=== PATIENT | female | born 1970 | race Caucasian/White ===

== ENCOUNTER 2017-01-30 12:50 | Emergency (ER) | payer OTHER ==
[~2017-01-30] VITALS: Ht 172.7 cm; Wt 54.5 kg
[~2017-01-30 12:50] MED LIST: ASPI-973 PO; CALC600T12 PO; CHOL100045 PO; CYAN10008 PO; METO25TA6 PO
[2017-01-30 13:05] VITALS: BP 94/95; PULSE 54; RESP 26; O2SAT 100
--- NOTE | 2017-01-30 13:45 | ED.REPORT ---
HPI-Extremity Problem Lower Date of Service Jan 30, 2017 ED Provider: History of Present Illness: missed step on box jump and hit knee on right leg about 1.5 hours ago. needs update on tdap. bradly is primary care. normally healthy 09/24. Happened in her garage Nursing Notes Stated Complaint: SLICED RT WATSON Chief Complaint: Extremity Trauma Nursing Notes Reviewed: Yes Allergies: Coded Allergies: Sulfa (Sulfonamide Antibiotics) (Verified Allergy, Intermediate, Rash, ) acetaminophen (Verified Allergy, Intermediate, Rash, 04/13/15) WITH NAUSEA VOMITING Scheduled Aspirin (Aspirin) 81 Mg Tablet 81 MG PO DAILY Calcium Carbonate (Calcium) 600 Mg Tablet 600 MG PO DAILY Cholecalciferol (Vitamin D3) (Vitamin D) 1,000 Unit Capsule 2,500 UNIT PO DAILY Cyanocobalamin (Vitamin B-12) (Vitamin B-12) 1,000 Mcg Tablet 1,000 MCG PO DAILY Metoprolol Tartrate (Metoprolol Tartrate) 25 Mg Tablet 12.5 MG PO BID General Time Seen by MD: 13:44 Chief Complaint Leg injury right Hx Obtained From: Patient Onset Occurred: 1 - 4 hours ago Symptom Duration: Since onset Past Medical History Past Medical History Notes: PCP: Brianna Leonard MD Past Medical History none reported Past Surgical History none reported Family History non-contributory Smoking History Never Smoker Social History Alcohol Use: Denies alcohol use Drug Use: Denies drug use Other Social History: Occupation lives with , no work or school 01/30/2017 Ambulatory Status Independent Review of Systems Basic Review of Systems Eyes: Vision NL, No discharge Allergy / Immune: No allergy Psychiatric: Normal thought content Physical Exam Initial Vital Signs Vital Signs (First) Date Time Temp Pulse Resp B/P Pulse Ox O2 Delivery O2 Flow Rate FiO2 01/30/17 13:05 36.7 54 26 94/95 100 Room Air Initial VS: Reviewed, Vital signs normal General/Constitutional: Well-developed, Well-nourished Head / Eyes: Atraumatic, Normocephalic, PERRL ENT: Mucous membranes moist, Conjunctiva normal, No scleral icterus Neck: Supple, Non-tender, Full range of motion Respiratory: Breath sounds normal, Clear to auscultation, No respiratory distress Cardiovascular: Regular rate & rhythm, Heart sounds normal, Intact distal pulses Abdomen / GI: Soft, Non-tender, No guarding, No rebound, No distention Back: No CVA tenderness Lymphatic: No lymphadenopathy Upper Extremities: Vascular intact, Neuro intact, No swelling, No tenderness Skin: Warm, Dry, No cyanosis Neurologic: Alert, Oriented, Nonfocal Psychiatric: Mood/affect normal, Behavior normal, Normal thought content flap laceration on right lower leg Ankle / Foot: Atraumatic, Inspection NL, Full range of motion, No swelling General/Constitutional: Awake, Alert, No acute distress, Well appearing, Well developed, Well hydrated Respiratory / Chest: Atraumatic, Breath sounds NL, Breath sounds = bilat, No respiratory distress Cardiovascular: Heart rate NL, Regular rhythm, Heart sounds NL, No gallop Procedures Laceration Management Time: 14:00 Procedure Performed by: Allied health pract Consent / Setup / Site Prep: Informed consent provided, Consent from patient Location of Wound: right lower leg Wound Length: 3 cm Local Anesthesia: Lidocaine 1%, 5cc, 25g needle Digital Block: No Wound Preparation: Normal saline Debridement: None Irrigation: Copious Foreign Body Explore / Removal: Explored for foreign body Repair Skin: ___ O (5), Nylon # Sutures - Skin: 10 Closure Layers: 1 Suture Technique: Simple, Mattress (1 mattress) Post-Procedure / Complications: Antibiotic oint applied, Dressing applied, No complications, Condition improved, Tolerated procedure well, Patient stable Re-Eval/Medical Decision Med Decision/Clinical Course 46 year old female presents for repair of lacertion on right lower leg. Occured while doing a box jump in her garage at home. No sign of compartment syndrome or fracture Discharge & Departure Impression: Primary Impression: Laceration Disposition: Home Patient Instructions: Laceration (ED) Additional Instructions: The wound has been repaired with 10 sutures. Keep dry for 24 hours. It is OK to get wet after that. Then pat dry and apply ointment. You can use ibuprofen 600 mg up to 3 times a dy as needed for any discomfort. Sutures out in 14 days here. Return with any concerns. Updated on your tdap today. Referrals: Sivakumar Leonard MD (PCP) EDSupervising Provider for APC: Edin Brink MD copies to: Sivakumar Leonard MD, Sue ARNP Jan 30, 2017 13:45
[2017-01-30] MEDS ORDERED: TdaP Vaccine 0.5 mL Inj IM ONE (13:55)
[2017-01-30 15:09] VITALS: BP 119/67; PULSE 72; RESP 16; O2SAT 98
== END 2017-01-30 15:10 | disposition home or self-care (01) ==
LOC: SED 12:50
DX: S81.811A Laceration without foreign body, right lower leg, initial encounter (principal); W22.8XXA Striking against or struck by other objects, initial encounter; Y93.89 Activity, other specified; Y92.094 Garage of other non-institutional residence as the place of occurrence of the external cause; Y99.8 Other external cause status; Z88.2 Allergy status to sulfonamides; Z88.6 Allergy status to analgesic agent; Z79.82 Long term (current) use of aspirin; Z23 Encounter for immunization

== ENCOUNTER 2017-02-14 11:46 | Emergency (ER) | payer OTHER ==
[2017-02-14 11:51] VITALS: BP 110/64; PULSE 50; RESP 15; O2SAT 100
== END 2017-02-14 12:00 | disposition home or self-care (01) ==
LOC: SED 11:46
DX: Z48.02 Encounter for removal of sutures (principal)